=== PATIENT | male | born 1995 | race African-American/Black ===

== ENCOUNTER 2017-01-09 19:21 | Emergency (ER) | payer BC, OTHER ==
[2017-01-09 20:57] VITALS: BP 122/61
[2017-01-09] MEDS ORDERED: Ketorolac INJ* 30 MG/ML 1 ML VIAL IM ONE (21:13)
[2017-01-09] MEDS ORDERED: Acetaminophen TAB* 325 MG PO ONE (21:13)
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
--- NOTE | 2017-01-09 21:50 | RAD ---
INDICATION: Fever and cough. COMPARISON: There are no prior studies available for comparison. TECHNIQUE: Dual-energy PA and lateral views of the chest were obtained. FINDINGS: The heart is within normal limits in size. Mediastinal and hilar contours appear within normal limits. The lungs are clear. No pleural effusion is present. IMPRESSION: NO EVIDENCE FOR ACTIVE CARDIOPULMONARY DISEASE.
[2017-01-09] MEDS ORDERED: Cephalexin CAP* 500 MG PO ONE ×2 (22:08)
== END 2017-01-09 22:23 | disposition home or self-care (01) ==
LOC: UCCORT 19:21
DX: J03.90 Acute tonsillitis, unspecified (principal)
CPT/HCPCS: 71020; 87502; 87651; 96372; 99213; A9270-GY; G0463; J1885